=== PATIENT | male | born 2000 | race Caucasian/White ===

== ENCOUNTER 2024-05-30 09:03 | Emergency (ER) | payer BC, SELFPAY ==
[2024-05-30 09:15] VITALS: BP 169/110; PULSE 93; RESP 18; TEMP 36.9; O2SAT 98; BMI 36.6
--- NOTE | 2024-05-30 10:20 | ED.GENADULT ---
HPI - General Adult General Time Seen by Provider: 10:20 Date Seen: 05/30/24 Chief complaint: GI Bleed Stated complaint: Blood in stool Time Seen by Provider: 05/30/24 10:20 Source: patient and RN notes reviewed Mode of arrival: ambulatory Limitations: no limitations History of Present Illness HPI narrative: This 24-year-old male is coming in with bright red blood and small clots noted in stools starting today. He has lower abdominal cramping, worsens before AST of a bowel movement. When he got up this morning, felt constipated for about an hour or so, finally had a large stool and there was some blood in some small clots with it. He has went about another 6 times, small passage of stool and some small amounts of blood with small clots in the toilet. He does state it small amounts. There has been no fevers chills. In his history, there may have been times where he has wiped and maybe wiped a little bit of blood but he has never had anything like this. His mom has hemorrhoids but he is not aware of anybody with inflammatory bowel disease, no family history of colon cancer. Patient states he is otherwise healthy. He is not been taking any medicines, no use of NSAIDs or aspirin. He has not drink any alcohol for about 6 months, no nicotine products. He does feel a little sweaty but he thinks it is because he is nervous right now. Related Data Previous Rx's ?Medication ?Instructions ?Recorded ciprofloxacin HCl 500 mg tablet 500 mg PO BID #10 tabs 05/30/24 Allergies Allergy/AdvReac Type Severity Reaction Status Date / Time No Known Drug Allergies Allergy Verified 05/30/24 09:17 Review of Systems Status of ROS: Reports: 6 or more systems reviewed and unremarkable except as noted in History and below PFSH PFS Social History Non-prescribed substance use: denies use Exam Const: Vital Signs, click to edit/add: Vital Signs - 24 hr 05/30/24 09:15 Temperature 98.4 F Pulse Rate [Right Pulse Oximeter] 93 Respiratory Rate 18 Blood Pressure [Ri ght Upper Arm] 169/110 H Pulse Oximetry 98 Oxygen Delivery Me thod Room Air 24-year-old male that is alert, interactive, no apparent distress. Pupils equal round reactive, sclera clear, symmetrical facial function. Neck is supple, no adenopathy or masses. Lungs are clear, good air entry, no wheezing or crackles. CV regular rate and rhythm, no murmur, normal S1-S2, no S3-S4. Abdomen is currently soft, nontender, nondistended, no organomegaly. He has minimal left lower quadrant discomfort, states not really tenderness on palpation, certainly no rebound or guarding. Bowel sounds are hypoactive but present. Skin visualized without any rash, patient is ambulatory into the ED of his own accord. Rectal exam reveals a little bit of hemorrhoidal tissue that is not swollen or tender, not thrombosed or bleeding. Digital rectal exam reveals no masses, no visible stool or blood on glove on withdrawal. Documenting provider has reviewed patient's vital signs: yes Course Course ED Course: This 24-year-old male has bright red blood per rectum and some cramping prior to his stooling. Diverticular bleed, diverticulitis is a possibility even at his young age. With this presentation, doubt that this is presentation of inflammatory bowel disease but will get inflammatory markers and we will be obtaining CT imaging. Much less likely to be a cancerous presentation in a patient of his age range but again CT imaging will be done. He understands that he eventually may need colonoscopy but is not clinically indicated emergently at this time. He will be observed here in this workup, will ensure stability of his bleeding. Reevaluation(s) Time of Reevaluation #1: 13:32 Reevaluation #1: Reviewed patient's laboratory findings, I provided him copy of his CT report. There is maybe a little inflammation the transverse colon. There certainly nothing lower on examination that I found be the source of bleeding. I have talked to our hospitalist regarding this patient, she feels outpatient management with short course of Cipro and close outpatient follow-up is appropriate. Patient has had maybe 3 subsequent episodes where there has just been a few spots of blood or small clot. The last episode did have some stool in it as well. I do think he is reasonable for a trial of outpatient management. He knows that he is going to need to follow up in clinic. A follow-up colonoscopy in 6-8 weeks really should be done, he can get this scheduled through his primary. Vital Signs Vital signs: Initial Vital Signs Temperature 98.4 F 05/30/24 09:15 Temperature Source Temporal Artery Scan 05/30/24 09:15 Pulse Rate 93 05/30/24 09:15 Respiratory Rate 18 05/30/24 09:15 Blood Pressure 169/110 H 05/30/24 09:15 Blood Pressure Mean 129 H 05/30/24 09:15 Blood Pressure Position Sitting 05/30/24 09:15 Pulse Oximetry 98 05/30/24 09:15 Oxygen Delivery Method Room Air 05/30/24 09:15 Vital Signs Temperature 98.4 F 05/30/24 09:15 Pulse Rate 93 05/30/24 09:15 Respiratory Rate 18 05/30/24 09:15 Blood Pressure 169/110 H 05/30/24 09:15 Pulse Oximetry 98 05/30/24 09:15 Oxygen Delivery Method Room Air 05/30/24 09:15 Temperature 98.4 F 05/30/24 09:15 Pulse Rate 93 05/30/24 09:15 Respiratory Rate 18 05/30/24 09:15 Blood Pressure 169/110 H 05/30/24 09:15 Pulse Oximetry 98 05/30/24 09:15 Oxygen Delivery Method Room Air 05/30/24 09:15 Medical Decision Making Lab Data Lab results reviewed: Yes I reviewed the patient's lab results Labs: Lab Results 05/30/24 Range/Units 10:50 WBC 12.14 H (4.50-11.00) K/uL RBC 5.31 (4.30-5.90) m/uL Hgb 15.4 (13.5-17.5) gm/dL Hct 46.7 (37.0-53.0) % MCV 88 (80-100) fL MCH 29 (26-34) pg MCHC 33 (32-36) gm/dL RDW Coeff of Darlene 12.3 (11.5-15.5) % Plt Count 220 (140-440) K/uL Neut % (Auto) 85.0 H (42.0-72.0) % Lymph % (Auto) 8.8 L (20-44) % Dooly % (Auto) 5.9 (0.0-11.0) % Eos % (Auto) 0.1 (0.0-7.0) % Baso % (Auto) 0.1 (0.0-3.0) % Neut # (Auto) 10.30 H (1.7-7.0) K/uL Lymph # (Auto) 1.10 (0.90-2.90) K/uL D[place]y # (Auto) 0.70 (0.00-0.90) K/UL Eos # (Auto) 0.00 (0.00-0.50) K/uL Baso # (Auto) 0.00 (0.00-0.30) K/uL Abs Immat Gran (auto) 0.00 (0.00-0.30) K/uL Imm/Tot Granulo (auto) 0.1 % INR 0.98 (0.91-1.10) APTT 27 (23-33) Seconds Sodium 140 (135-149) mmol/L Potassium 4.0 (3.6-5.1) mmol/L Chloride 106 (96-114) mmol/L Carbon Dioxide 24 (20-32) mmol/L Anion Gap 10 (7-15) mEq/L BUN 15 (5-24) mg/dL Creatinine 0.9 (0.5-1.5) mg/dL Estimated Creat Clear 128.43 Estimated GFR 121 ml/min Glucose 151 H (60-115) mg/dL Lactate 1.7 (0.5-1.9) mmol/L Calcium 9.9 (8.4-10.6) mg/dL Total Bilirubin 0.6 (0.1-1.5) mg/dL AST 29 (12-35) U/L ALT 32 (4-50) U/L Alkaline Phosphatase 34 L (40-150) U/L C-Reactive Protein < 0.5 L (0.5-1.0) mg/dL Total Protein 7.8 (6.0-8.3) g/dL Albumin 5.1 H (3.3-5.0) g/dL Imaging Data CT scan - abdomen: Attestation: I have reviewed the pertinent imaging results. Radiologist's impression: Patient: ANDRZEJ CARTY Facility:?[facility] Patient ID:?[id number] Site Patient ID:?[id number]. Site :?[id number] Study:?CT-Abdomen/Pelvis -05/30/2024 11:08:58 AM Ordering Physician:Magdalena Espinoza Final Report: INDICATION: Bright red blood per rectum abdominal cramping TECHNIQUE: CT abdomen and pelvis with 125 mL Isovue 370 COMPARISON: None. FINDINGS: Lower chest: Unremarkable. Liver: Normal in size and attenuation. No suspicious masses. Gallbladder and bile ducts: No stones or inflammation. No biliary dilatation. Pancreas: Unremarkable. No mass or inflammation. Spleen: Normal in size. No masses. Adrenal glands: Normal in size. No nodules. Kidneys: Normal in size. No suspicious masses, stones, or hydronephrosis. GI tract: Normal appendix. Bowel appears unremarkable there may be some wall thickening along the transverse colon versus nondistention the descending colon appears nondistended. No inflammatory change seen. The bowel otherwise appears unremarkable Vasculature: Abdominal aorta is normal in caliber. Lymph nodes: No lymphadenopathy. Peritoneum/Abdominal Wall: Unremarkable. No sign of mass or infiltration. No free air or significant free fluid. Pelvis: Unremarkable. No pelvic masses. Bones: Unremarkable for age. IMPRESSION: 1. No acute findings not been pelvis. Possible mild wall thickening along the transverse colon versus nondistention. The descending colon is nondistended. There is no inflammatory changes seen. Please note that all CT scans at this facility use dose modulation, iterative reconstruction, and/or weight-based dosing when appropriate to reduce radiation dose to as low as reasonably achievable. Dictated by Jazz Roche MD @ 05/30/2024 11:51:45 AM (Electronic Signature) Critical Care Time Critical Care Time Critical Care Time: No Discharge Plan Discharge Clinical Impression: BRBPR (bright red blood per rectum) Patient Disposition: Home, Self-Care Condition: Stable Instructions: Colitis (ED) Additional Instructions: Start Cipro and take as prescribed. Need to follow-up with your primary care provider in clinic within the next 1-2 weeks, need to get scheduled for follow-up colonoscopy in about 6-8 weeks. Drink plenty of fluids, stay on bland diet. As you feel better, can increase her diet as tolerated. If you develop increasing abdominal pain, have increased rectal bleeding, develop a fever with this, do need you to seek re-evaluation in the interim. Activity Level: Activity as Tolerated Discharge Diet: Regular Prescriptions: New ciprofloxacin HCl 500 mg tablet 500 mg PO BID Qty: 10 0RF Follow Up/Referrals: Provider,Not a Local [Primary Care Provider] - Stand Alone Forms: Breeze Info Instructions
--- NOTE | 2024-05-30 10:39 | CRLHL7_ITS ---
For Patients: As a result of the Century Cures Act, medical imaging exams and procedure reports are released immediately into your electronic medical record. You may view this report before your referring provider. If you have questions, please contact your health care provider. INDICATION: Bright red blood per rectum abdominal cramping TECHNIQUE: CT abdomen and pelvis with 125 mL Isovue 370 COMPARISON: None. FINDINGS: Lower chest: Unremarkable. Liver: Normal in size and attenuation. No suspicious masses. Gallbladder and bile ducts: No stones or inflammation. No biliary dilatation. Pancreas: Unremarkable. No mass or inflammation. Spleen: Normal in size. No masses. Adrenal glands: Normal in size. No nodules. Kidneys: Normal in size. No suspicious masses, stones, or hydronephrosis. GI tract: Normal appendix. Bowel appears unremarkable there may be some wall thickening along the transverse colon versus nondistention the descending colon appears nondistended. No inflammatory change seen. The bowel otherwise appears unremarkable Vasculature: Abdominal aorta is normal in caliber. Lymph nodes: No lymphadenopathy. Peritoneum/Abdominal Wall: Unremarkable. No sign of mass or infiltration. No free air or significant free fluid. Pelvis: Unremarkable. No pelvic masses. Bones: Unremarkable for age. IMPRESSION: 1. No acute findings not been pelvis. Possible mild wall thickening along the transverse colon versus nondistention. The descending colon is nondistended. There is no inflammatory changes seen. Please note that all CT scans at this facility use dose modulation, iterative reconstruction, and/or weight-based dosing when appropriate to reduce radiation dose to as low as reasonably achievable. Dictated by Jazz Roche MD @ 05/30/2024 11:51:45 AM (Electronically Signed)
[2024-05-30 10:59] LABS: Basophils Percent Auto 0.1 % (0.0-3.0); Eosinophils Percent Auto 0.1 % (0.0-7.0); Hematocrit 46.7 % (37.0-53.0); Hemoglobin* 15.4 gm/dL (13.5-17.5); Immature Granulocytes Pct Auto 0.1 %; Lactate* 1.7 mmol/L (0.5-1.9); Lymphocytes Percent Auto 8.8 % (20-44); Mean Corpuscular HGB Conc 33 gm/dL (32-36); Mean Corpuscular Hemoglobin 29 pg (26-34); Mean Corpuscular Volume 88 fL (80-100); Monocytes Percent Auto 5.9 % (0.0-11.0); Platelet Count* 220 K/uL (140-440); RDW Coefficient of Variation % 12.3 % (11.5-15.5); Red Blood Count 5.31 m/uL (4.30-5.90); White Blood Count* 12.14 K/uL (4.50-11.00)
[2024-05-30 11:07] LABS: Slide Review Reflex No
[2024-05-30 11:16] LABS: Albumin* 5.1 g/dL (3.3-5.0); Chloride* 106 mmol/L (96-114); Sodium* 140 mmol/L (135-149)
[2024-05-30 11:19] LABS: Alkaline Phosphatase* 34 U/L (40-150); Anion Gap 10 mEq/L (7-15); Aspartate Amino Transferase* 29 U/L (12-35); Bilirubin Total* 0.6 mg/dL (0.1-1.5); Carbon Dioxide* 24 mmol/L (20-32); Creatinine* 0.9 mg/dL (0.5-1.5); Est. Creatinine Clearance* 128.43; Estimated Glomerular Filt Rate 121 ml/min; Total Protein* 7.8 g/dL (6.0-8.3)
[2024-05-30 11:20] LABS: Alanine Aminotransferase* 32 U/L (4-50); Blood Urea Nitrogen* 15 mg/dL (5-24); Calcium* 9.9 mg/dL (8.4-10.6); Glucose* 151 mg/dL (60-115)
[2024-05-30 11:23] LABS: C Reactive Protein* < 0.5 mg/dL (0.5-1.0)
[2024-05-30 11:34] LABS: INR 0.98 (0.91-1.10); Partial Thromboplastin Time* 27 Seconds (23-33); Prothrombin Time 13.6 Seconds
== END 2024-05-30 13:54 | disposition home or self-care (01) ==
PROVIDERS: Emergency Provider Family Medicine
DX: K62.5 Hemorrhage of anus and rectum (principal)
CPT/HCPCS: 36415; 74177; 80053; 83605; 85025; 85610; 85730; 86140; 99284; 99285; Q9967